=== PATIENT | male | born 1980 | race African-American/Black ===

== ENCOUNTER 2019-01-12 11:47 | Inpatient (IN) | payer OTHER ==
[2019-01-12 14:48] VITALS: BMI 25.7
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
[2019-01-12] MEDS ORDERED: LOPERAMIDE HCL 2 MG CAPSULE PO PRN (16:40)
[2019-01-12] MEDS ORDERED: ACETAMINOPHEN 325 MG TABLET (FP) PO PRN (16:40)
[2019-01-12] MEDS ORDERED: P-EPHED 60MG/TRIPROLIDI 2.5MG TABLET PO PRN (16:40)
[2019-01-12] MEDS ORDERED: MAGNESIUM HYDROX 2400MG/30ML ORAL SUSPENSION 30 ML CUP PO PRN (16:40)
[2019-01-12] MEDS ORDERED: MAG HYDROX/AL HYDROX/SIMETH 30 ML UNIT-DOSE CUP PO PRN (16:40)
[2019-01-12] MEDS ORDERED: guaiFENesin 200 MG/10 ML 10 ML UNIT-DOSE CUPS PO PRN (16:40)
[2019-01-12] MEDS ORDERED: IBUPROFEN 400 MG TABLET (FP) PO PRN (16:40)
[2019-01-12] MEDS ORDERED: MENTHOL/PHENOL 1 EACH UD MM PRN (16:40)
--- NOTE | 2019-01-12 17:17 | PN ---
Teaching Attending Note Name of Resident: Tiana Merritt ATTENDING PHYSICIAN STATEMENT I saw and evaluated the patient. I reviewed the resident's note and discussed the case with the resident. I agree with the resident's findings and plan as documented. SUBJECTIVE: pt referred here by out pt program for rehab. Pt has been using $70 of cocaine/day and $5-10/day of marijuana. Pt states last use of alcohol was a week ago. Vital Signs - 24 hr 01/12/19 14:01 Temperature 98.0 F Pulse Rate 78 Respiratory 20 Rate Blood Pressure 140/85 OBJECTIVE: alert and oriented not tremulous ASSESSMENT AND PLAN: Pt with cocaine and cannabis use disorder- pt to go to rehab. d/w patient
[2019-01-12] MEDS: THIAMINE HCL 100 MG TABLET (FP) PO SCH (21:29)
[2019-01-12] MEDS ORDERED: MELATONIN 5 MG TABLETS PO PRN (22:00)
[2019-01-13] MEDS: PRENATAL VITAMINS W/ FOLIC ACID TABLET (FP) PO SCH (09:36)
[2019-01-13] MEDS ORDERED: PNEUMOC 13-VAL CONJ-DIP CRM/PF 0.5 ML DISP.SYRIN IM ONE (12:00)
[2019-01-13] MEDS ORDERED: PNEUMOCOCCAL 23 VACCINE 0.5 ML VIAL IM ONE (12:00)
[2019-01-13 12:26] LABS: HEMATOCRIT 41.7 % (35.4-49); HEMOGLOBIN 13.9 GM/dL (11.7-16.9); MCH 28.8 pg (25.7-33.7); MCHC 33.3 g/dl (32.0-35.9); MEAN CELL VOLUME 86.5 fl (80-96); MEAN PLT VOLUME 8.7 fl (7.5-11.1); RBC 4.81 M/mm3 (4.00-5.60); RDW 14.5 % (11.9-15.9); WHITE BLOOD COUNT 6.6 K/mm3 (4.0-10.0)
[2019-01-13 12:35] LABS: ALBUMIN 3.8 g/dl (3.4-5.0); BILIRUBIN,TOTAL 0.6 mg/dL (0.2-1); BLOOD UREA NITROGEN 22.4 mg/dL (7-18); CALCIUM 8.7 mg/dL (8.5-10.1); CREATININE 1.2 mg/dL (0.55-1.3); POTASSIUM 4.1 mmol/L (3.5-5.1); TOT PROT 7.1 g/dl (6.4-8.2)
[2019-01-13 13:37] LABS: PLATELET COUNT 236 K/MM3 (134-434)
--- NOTE | 2019-01-13 14:42 | CONSULT ---
[facility] Psychiatric Consult - Data Date of interview: 01/13/19 Admission source: [facility] Identifying data: Mr Troncoso is a 38 years old single [place]-born male, unemployed receiving SSI, living with his mother seeking rehab treatment for alcohol, cocaine and cannabis Substance Abuse History: Reports history of alcohol. cocaine and marijuana Medical History: Unremarkable. Smokes 4-5 cigarettes daily Psychiatric History: Reports that his first psychiatric contact was at age 20 when he was admitted to [facility] for auditory hallucinations and paranoia. He was diagnosed with Paranoid Schizophrenia and started on Zyprexa. Reports mutiple subsequent admissions to [facility] x3 & [facility] in [place] x4. Reports that most recent admission was 2 years ago to [facility]. Reports receiving outpatient psychiatric treatment at the [facility] in [facility] and he is prescribed Abilify 30 mg/day and Cogentin 1 mg/day. Denies previous suicidal attempt. At present, denies experiencing pychotic, manic or depressive symptoms, S/H ideations. However, reports feeling anxious and sleeping poorly Physical/Sexual Abuse/Trauma History: Denies history of emotional, physical or sexual abuse as well as DV relationship Additional Comment: Reports history of 2-3 previous misdemeanor arrests on charges of strespassing Mental Status Exam - Mental Status Exam Alert and Oriented to: Time, Place, Person Cognitive Function: Fair Patient Appearance: Well Groomed Mood: Anxious Affect: Appropriate Patient Behavior: Cooperative Speech Pattern: Clear Voice Loudness: Normal Thought Process: Intact, Goal Oriented Hallucinations: Denies Suicidal Ideation: Denies Homicidal Ideation: Denies Insight/Judgement: Fair Sleep: Poorly Appetite: Fair Muscle strength/Tone: Normal Gait/Station: Normal Psychiatric Findings - Problem List ([place] 1, 2,3) (1) Paranoid schizophrenia Current Visit: Yes Status: Chronic (2) Substance-induced anxiety disorder Current Visit: Yes Status: Acute (3) Substance-induced sleep disorder Current Visit: Yes Status: Acute (4) Alcohol dependence Current Visit: Yes Status: Acute (5) Cocaine dependence Current Visit: Yes Status: Acute (6) Cannabis dependence Current Visit: Yes Status: Acute (7) Nicotine dependence Current Visit: Yes Status: Chronic - Initial Treatment Plan Initial Treatment Plan: 1) Continue Abilify 30 mg po daily and Cogentin 1 mg po daily. 2) Start Melatonin 10 mg po HS prn for insomnia. 3) Continue inpatient detoxification
[2019-01-13] MEDS ORDERED: PT OWN MED DRAWER 7, Y5N ONE (19:44)
[2019-01-13] MEDS: BENZTROPINE MESYLATE 1 MG TABLET (FP) PO SCH (19:52)
[2019-01-13] MEDS: THIAMINE HCL 100 MG TABLET (FP) PO SCH (21:59)
[2019-01-13] MEDS: MELATONIN 5 MG TABLETS PO PRN (21:59)
[2019-01-13] MEDS: ARIPiprazole 15 MG TABLET PO SCH (22:58)
[2019-01-14] MEDS ORDERED: PT OWN MED DRAWER 7, Y5N ONE (08:49)
[2019-01-14] MEDS: ARIPiprazole 15 MG TABLET PO SCH (10:16)
[2019-01-14] MEDS: PRENATAL VITAMINS W/ FOLIC ACID TABLET (FP) PO SCH (10:16)
[2019-01-14] MEDS: BENZTROPINE MESYLATE 1 MG TABLET (FP) PO SCH (10:16)
[2019-01-14] MEDS: THIAMINE HCL 100 MG TABLET (FP) PO SCH (21:10)
[2019-01-14] MEDS: MELATONIN 5 MG TABLETS PO PRN (21:10)
[2019-01-15] MEDS ORDERED: PT OWN MED DRAWER 7, Y5N ONE (09:04)
[2019-01-15] MEDS: ARIPiprazole 15 MG TABLET PO SCH (10:18)
[2019-01-15] MEDS: PRENATAL VITAMINS W/ FOLIC ACID TABLET (FP) PO SCH (10:18)
[2019-01-15] MEDS: BENZTROPINE MESYLATE 1 MG TABLET (FP) PO SCH (10:18)
[2019-01-15] MEDS: THIAMINE HCL 100 MG TABLET (FP) PO SCH (22:16)
[2019-01-15] MEDS: MELATONIN 5 MG TABLETS PO PRN (22:17)
[2019-01-16] MEDS: BENZTROPINE MESYLATE 1 MG TABLET (FP) PO SCH (10:53)
[2019-01-16] MEDS: PRENATAL VITAMINS W/ FOLIC ACID TABLET (FP) PO SCH (10:53)
[2019-01-16] MEDS: ARIPiprazole 15 MG TABLET PO SCH (10:54)
[2019-01-16] MEDS: THIAMINE HCL 100 MG TABLET (FP) PO SCH (21:28)
[2019-01-16] MEDS: MELATONIN 5 MG TABLETS PO PRN (21:29)
[2019-01-17] MEDS: ARIPiprazole 15 MG TABLET PO SCH (09:36)
[2019-01-17] MEDS: BENZTROPINE MESYLATE 1 MG TABLET (FP) PO SCH (09:36)
[2019-01-17] MEDS: PRENATAL VITAMINS W/ FOLIC ACID TABLET (FP) PO SCH (09:36)
[2019-01-17] MEDS: THIAMINE HCL 100 MG TABLET (FP) PO SCH (21:52)
[2019-01-17] MEDS: MELATONIN 5 MG TABLETS PO PRN (21:52)
[2019-01-18] MEDS: PRENATAL VITAMINS W/ FOLIC ACID TABLET (FP) PO SCH (10:29)
[2019-01-18] MEDS: BENZTROPINE MESYLATE 1 MG TABLET (FP) PO SCH (10:29)
[2019-01-18] MEDS: ARIPiprazole 15 MG TABLET PO SCH (10:29)
[2019-01-18] MEDS: MELATONIN 5 MG TABLETS PO PRN (21:36)
[2019-01-18] MEDS: THIAMINE HCL 100 MG TABLET (FP) PO SCH (21:36)
[2019-01-19] MEDS: PRENATAL VITAMINS W/ FOLIC ACID TABLET (FP) PO SCH (10:10)
[2019-01-19] MEDS: ARIPiprazole 15 MG TABLET PO SCH (10:10)
[2019-01-19] MEDS: BENZTROPINE MESYLATE 1 MG TABLET (FP) PO SCH (10:10)
[2019-01-19] MEDS ORDERED: PT OWN MED DRAWER 7, Y5N ONE (10:12)
[2019-01-19] MEDS: THIAMINE HCL 100 MG TABLET (FP) PO SCH (21:34)
[2019-01-19] MEDS: MELATONIN 5 MG TABLETS PO PRN (21:34)
[2019-01-20] MEDS ORDERED: PT OWN MED DRAWER 7, Y5N ONE ×2 (08:40→09:32)
[2019-01-20] MEDS: BENZTROPINE MESYLATE 1 MG TABLET (FP) PO SCH (09:31)
[2019-01-20] MEDS: PRENATAL VITAMINS W/ FOLIC ACID TABLET (FP) PO SCH (09:31)
[2019-01-20] MEDS: ARIPiprazole 15 MG TABLET PO SCH (09:31)
[2019-01-20] MEDS: THIAMINE HCL 100 MG TABLET (FP) PO SCH (21:16)
[2019-01-20] MEDS: MELATONIN 5 MG TABLETS PO PRN (21:17)
[2019-01-21] MEDS: ARIPiprazole 15 MG TABLET PO SCH (10:25)
[2019-01-21] MEDS: BENZTROPINE MESYLATE 1 MG TABLET (FP) PO SCH (10:26)
[2019-01-21] MEDS: PRENATAL VITAMINS W/ FOLIC ACID TABLET (FP) PO SCH (10:26)
[2019-01-21] MEDS: THIAMINE HCL 100 MG TABLET (FP) PO SCH (21:36)
[2019-01-21] MEDS: MELATONIN 5 MG TABLETS PO PRN (21:36)
[2019-01-22] MEDS: PRENATAL VITAMINS W/ FOLIC ACID TABLET (FP) PO SCH (09:59)
[2019-01-22] MEDS: BENZTROPINE MESYLATE 1 MG TABLET (FP) PO SCH (09:59)
[2019-01-22] MEDS: ARIPiprazole 15 MG TABLET PO SCH (09:59)
[2019-01-22] MEDS: MELATONIN 5 MG TABLETS PO PRN (21:19)
[2019-01-22] MEDS: THIAMINE HCL 100 MG TABLET (FP) PO SCH (21:19)
--- NOTE | 2019-01-23 07:27 | PN ---
S Progress Note Note: Patient reports sleepingpoorly despite taking Melatonin 10 mg at bedtime. Requests to be ordered a stronger medication for sleep. Hypnotic properties of Belsomra discussed with patient and he agreed to try it
[2019-01-23] MEDS: ARIPiprazole 15 MG TABLET PO SCH (09:32)
[2019-01-23] MEDS: PRENATAL VITAMINS W/ FOLIC ACID TABLET (FP) PO SCH (09:33)
[2019-01-23] MEDS: BENZTROPINE MESYLATE 1 MG TABLET (FP) PO SCH (09:33)
[2019-01-23] MEDS: THIAMINE HCL 100 MG TABLET (FP) PO SCH (21:25)
[2019-01-23] MEDS: SUVOREXANT 10 MG TABLET PO PRN (21:25)
[2019-01-24] MEDS: PRENATAL VITAMINS W/ FOLIC ACID TABLET (FP) PO SCH (09:04)
[2019-01-24] MEDS: ARIPiprazole 15 MG TABLET PO SCH (09:04)
[2019-01-24] MEDS: BENZTROPINE MESYLATE 1 MG TABLET (FP) PO SCH (09:04)
[2019-01-24] MEDS: THIAMINE HCL 100 MG TABLET (FP) PO SCH (21:15)
[2019-01-24] MEDS: SUVOREXANT 10 MG TABLET PO PRN (21:16)
[2019-01-25] MEDS: BENZTROPINE MESYLATE 1 MG TABLET (FP) PO SCH (09:05)
[2019-01-25] MEDS: PRENATAL VITAMINS W/ FOLIC ACID TABLET (FP) PO SCH (09:05)
[2019-01-25] MEDS: ARIPiprazole 15 MG TABLET PO SCH (09:05)
[2019-01-25] MEDS: THIAMINE HCL 100 MG TABLET (FP) PO SCH (21:58)
[2019-01-25] MEDS: SUVOREXANT 10 MG TABLET PO PRN (22:00)
[2019-01-26] MEDS: ARIPiprazole 15 MG TABLET PO SCH (09:49)
[2019-01-26] MEDS: PRENATAL VITAMINS W/ FOLIC ACID TABLET (FP) PO SCH (09:49)
[2019-01-26] MEDS: BENZTROPINE MESYLATE 1 MG TABLET (FP) PO SCH (09:49)
[2019-01-26] MEDS: THIAMINE HCL 100 MG TABLET (FP) PO SCH (21:26)
[2019-01-26] MEDS: SUVOREXANT 10 MG TABLET PO PRN (21:26)
--- NOTE | 2019-01-27 08:11 | PN ---
[facility] Progress Note Note: Patient is scheduled for discharge tomorrow. Scripts fror 30 days supply of medications(Abilify 30 mg/day, Cogentin 1 mg/day) will be electronically transmitted to [facility] at [address] [place], [place] [id number]
[2019-01-27] MEDS: BENZTROPINE MESYLATE 1 MG TABLET (FP) PO SCH (10:18)
[2019-01-27] MEDS: PRENATAL VITAMINS W/ FOLIC ACID TABLET (FP) PO SCH (10:18)
[2019-01-27] MEDS: ARIPiprazole 15 MG TABLET PO SCH (10:19)
[2019-01-27] MEDS: THIAMINE HCL 100 MG TABLET (FP) PO SCH (21:40)
[2019-01-28 07:01] VITALS: BP 129/80; PULSE 68; TEMP 97.5
[2019-01-28] MEDS: BENZTROPINE MESYLATE 1 MG TABLET (FP) PO SCH (09:37)
[2019-01-28] MEDS: PRENATAL VITAMINS W/ FOLIC ACID TABLET (FP) PO SCH (09:37)
[2019-01-28] MEDS: ARIPiprazole 15 MG TABLET PO SCH (09:37)
--- NOTE | 2019-01-28 09:47 | PN ---
S Progress Note (SOAP) Subjective: Patient to be discharged today. HOSPITAL COURSE: Attended group meeting, had 1: 1 session with his counselor, and session with psychiatrist. He was adherent to the treatment plan and his medication regimen. He had no acute medical problems during his stay and made good progress on his treatment plan. Objective: 01/28/19 09:46 CBC, BMP 01/13/19 08:30 01/13/19 08:30 Vital Signs (72 hours) 01/26/19 01/27/19 01/27/19 06:50 03:30 07:13 Temperature 97.5 F L 97.9 F Pulse Rate 67 62 Respiratory 18 18 18 Rate Blood Pressure 118/78 118/75 01/28/19 01/28/19 01/28/19 00:30 03:30 07:01 Temperature 97.5 F L Pulse Rate 68 Respiratory 18 18 18 Rate Blood Pressure 129/80 01/28/19 09:48 - Physical General Appearance: appropriate, no apparent distress HEENTM: normocephalic, PERRLA Respiratory: Lungs Clear Neck:Supple Cardiology: Regular Rhythm, Regular Rate, S1, S2 Abdominal: +BS, Soft, non-tender, non-distended Musculoskeletal: full range of Motion, full ROM, gait steady Neurological: international affairs vice president II-XII intact, no neurological deficits, oriented x3 Integumentary: Dry, Warm, color consistent throughout trunk and extremities Lymphatic: no palpable lymph nodes. Assessment: Medically stable for discharge Discharge dx Cocaine dependence Cannabis dependence ETOH dependence 01/28/19 09:51 Plan: On-going after care: Patient will continue treatment at [facility]. He has a PCP in [place], does not remember his name, but has information at home. Patient will make an appointment within 2 weeks of discharge. States he does not need prescriptions and will get his psychiatric medications at the center.
== END 2019-01-28 09:53 | disposition home or self-care (01) | DRG 895 ==
LOC: YASAS 11:47 → Y3W 17:09
PROVIDERS: ADMIT Neuromusculoskeletal Medicine & OMM; ATTEND Neuromusculoskeletal Medicine & OMM
PROC: HZ42ZZZ Group Counseling for Substance Abuse Treatment, Cognitive-Behavioral (ICD-10-PCS; principal; 2019-01-12)
DX: F10.20 Alcohol dependence, uncomplicated (principal); F14.20 Cocaine dependence, uncomplicated; F20.0 Paranoid schizophrenia; F19.280 Other psychoactive substance dependence with psychoactive substance-induced anxiety disorder; F19.282 Other psychoactive substance dependence with psychoactive substance-induced sleep disorder; F12.20 Cannabis dependence, uncomplicated; F17.210 Nicotine dependence, cigarettes, uncomplicated; Z91.013 Allergy to seafood
CPT/HCPCS: 36415; 80053; 82962; 85027; 86480; 86593; 90732; G0009